=== PATIENT | male | born 1965 | race Caucasian/White ===

== ENCOUNTER 2017-05-29 18:46 | Observation (INO) | payer BC ==
[~2017-05-29] VITALS: Ht 203.2 cm; Wt 89.3 kg
[2017-05-29 18:53] VITALS: BP 141/82; PULSE 63; RESP 16; TEMP 98.7; O2SAT 97
[2017-05-29 20:18] VITALS: BP_SYST 140; BP_SYST 147; BP_DIAS 81; BP_DIAS 85; PULSE 59; PULSE 63; RESP 20; O2SAT 99
[2017-05-29] MEDS ORDERED: ASPI-183 PO (20:37)
[2017-05-29] MEDS ORDERED: AMBI10TA PO (20:37)
[2017-05-29] MEDS ORDERED: ASPIRIN 81 MG CHEW TAB PO ONE (20:45)
[2017-05-29] MEDS ORDERED: SODIUM CHLORIDE 0.9% FLUSH 10 ML FLUSH IVF PRN (20:45)
[2017-05-29 20:49] VITALS: BP 125/84; PULSE 62; RESP 20; O2SAT 97
[2017-05-29 20:53] LABS: AUTOMATED NEUTROPHIL # 2.2 TH/MM3 (1.8-7.7); BASOPHIL % 1.1 % (0.0-2.0); EOSINOPHIL # 0.3 TH/MM3 (0-0.4); EOSINOPHIL % 7.2 % (0.0-4.0); LYMPH % 34.6 % (9.0-44.0); LYMPHOCYTE # 1.5 TH/MM3 (1.0-4.8); MEAN CELL VOLUME 92.8 FL (80.0-100.0); MEAN CORPUSCULAR HEMOGLOBIN 31.7 PG (27.0-34.0); MEAN CORPUSCULAR HGB CONC 34.1 % (32.0-36.0); MEAN PLATELET VOLUME 8.9 FL (7.0-11.0); MONO % 7.5 % (0.0-8.0); MONOCYTE # 0.3 TH/MM3 (0-0.9); NEUT % 49.6 % (16.0-70.0); PLATELET COUNT 142 TH/MM3 (150-450); RED BLOOD COUNT 4.74 MIL/MM3 (4.50-5.90); RED CELL DISTRIBUTION WIDTH 12.6 % (11.6-17.2); WHITE BLOOD COUNT 4.3 TH/MM3 (4.0-11.0)
[2017-05-29 21:00] LABS: CHLORIDE 107 MEQ/L (98-107); SODIUM (NA) 141 MEQ/L (136-145)
[2017-05-29 21:03] LABS: CALCIUM 8.4 MG/DL (8.5-10.1)
[2017-05-29 21:04] LABS: ALBUMIN 3.9 GM/DL (3.4-5.0); BICARBONATE 29.2 MEQ/L (21.0-32.0); BLOOD UREA NITROGEN 15 MG/DL (7-18); GLUCOSE,RANDOM 80 MG/DL (74-106)
[2017-05-29 21:06] LABS: INTERNATIONAL NORMALIZED RATIO 1.1 RATIO; PROTHROMBIN TIME - PATIENT 10.8 SEC (9.8-11.6)
[2017-05-29 21:07] LABS: ALT (GPT) 21 U/L (12-78); AST (GOT) 19 U/L (15-37); CREATININE 0.87 MG/DL (0.60-1.30); GLOMERULAR FILTRATION RATE 93 ML/MIN (>89)
[2017-05-29 21:08] LABS: D-DIMER 0.21 MG/L FEU (0.00-0.50); TOTAL BILIRUBIN ADULT 0.6 MG/DL (0.2-1.0); TOTAL PROTEIN 7.2 GM/DL (6.4-8.2)
[2017-05-29 21:10] LABS: ALKALINE PHOSPHATASE 64 U/L (45-117)
[2017-05-29 21:12] LABS: TROPONIN I LESS THAN 0.02 NG/ML (0.02-0.05)
--- NOTE | 2017-05-29 21:20 | RADRPT ---
EXAM DATE/TIME: 05/29/2017 20:53 [place] COMPARISON: No previous studies available for comparison. INDICATIONS : Chest discomfort; elevated heart rate. MEDICAL HISTORY : CVA. PVC. SURGICAL HISTORY : None. ENCOUNTER: Initial ACUITY: 1 day PAIN SCORE: 0/10 LOCATION: Bilateral chest FINDINGS: A single view of the chest demonstrates the lungs to be symmetrically aerated without evidence of mas s, infiltrate or effusion. The cardiomediastinal contours are unremarkable. Osseous structures are intact. CONCLUSION: No evidence of acute cardiopulmonary disease. Art Rios MD on May 29, 2017 at 21:18 Board Certified Radiologist. This report was verified electronically.
--- NOTE | 2017-05-29 21:36 | PD ---
HPI Chief Complaint: Cardiac Complaint Time Seen by Provider: 20:27 Travel History International Travel<30 days: No Contact w/Intl Traveler<30days: No Traveled to known affect area: No History of Present Illness HPI Patient is a 51-year-old male who comes in complaining of chest pain and palpitations. He says he first noticed some palpitations this morning when he woke up, and they went away. Again while he was at work he started to feel palpitations and started to feel dizzy. He then developed some pain to the center of his chest, which she describes as a pressure. He says currently he is symptom-free, but his symptoms have been coming and going. He takes an aspirin every day. He has no heart problems, but says that he had a stroke in 2003. He denies nausea or vomiting or shortness of breath. He does say that he had a little bit of nausea when the pain came on. He is not having any cold symptoms. Symptoms are mild to moderate. PFSH Past Medical History Hx Anticoagulant Therapy: Yes (asa 325mg ) Heart Rhythm Problems: Yes Cardiovascular Problems: Yes (pvc and palpitations) Cerebrovascular Accident: Yes (cva 2003) Diminished Hearing: No Tetanus Vaccination: < 5 Years Influenza Vaccination: No Social History Alcohol Use: Yes (Occ) Tobacco Use: No Substance Use: No Allergies-Medications (Allergen,Severity, Reaction): Coded Allergies: tetracycline (Verified Allergy, Severe, Anaphylaxis, 05/29/17) Reported Meds & Prescriptions Reported Meds & Active Scripts Active Reported Ambien (Zolpidem Tartrate) 10 Mg Tab 10 Mg PO HS PRN Aspirin 325 Mg Tab 325 Mg PO DAILY Review of Systems Except as stated in HPI: all other systems reviewed are Neg General / Constitutional: No: Fever, Chills Eyes: No: Blurred Vision HENT: No: Headaches, Lightheadedness Cardiovascular: Positive: Chest Pain or Discomfort, Palpitations Respiratory: No: Shortness of Breath Gastrointestinal: No: Nausea, Vomiting Musculoskeletal: No: Myalgias, Edema Skin: No Rash, No Change in Pigmentation Neurologic: Positive: Dizziness, No: Weakness Physical Exam Narrative GENERAL: Awake and alert, in no acute distress. SKIN: Focused skin assessment warm/dry. HEAD: Atraumatic. Normocephalic. EYES: Pupils equal and round. No scleral icterus. Extraocular movements intact. ENT: Mucous membranes pink and moist. NECK: Trachea midline. No JVD. CARDIOVASCULAR: Regular rate and rhythm. No murmur appreciated. RESPIRATORY: No accessory muscle use. Clear to auscultation. Breath sounds equal bilaterally. GASTROINTESTINAL: Abdomen soft, non-tender, nondistended. MUSCULOSKELETAL: No obvious deformities. No clubbing. No cyanosis. No edema. NEUROLOGICAL: Awake and alert. No obvious cranial nerve deficits. Motor grossly within normal limits. Normal speech. PSYCHIATRIC: Appropriate mood and affect; insight and judgment normal. Data Data Last Documented VS Vital Signs Date Time Temp Pulse Resp B/P (MAP) Pulse Ox O2 Delivery O2 Flow Rate FiO2 05/29/17 20:32 63 20 98 05/29/17 20:18 140/85 (103) Room Air 147/81 (103) 05/29/17 18:53 98.7 Orders Orders Electrocardiogram (05/29/17 20:36) Complete Blood Count With Diff (05/29/17 20:36) Comprehensive Metabolic Panel (05/29/17 20:36) D-Dimer (05/29/17 20:36) Prothrombin Time / Inr (Pt) (05/29/17 20:36) Act Partial Throm Time (Ptt) (05/29/17 20:36) Troponin I (05/29/17 20:36) Chest, Single Ap (05/29/17 20:36) Ecg Monitoring (05/29/17 20:36) Bilateral Bp Monitoring (05/29/17 20:36) Iv Access Insert/Monitor (05/29/17 20:36) Oximetry (05/29/17 20:36) Aspirin Chew (Aspirin Chew) (05/29/17 20:45) Sodium Chloride 0.9% Flush (Ns Flush) (05/29/17 20:45) Labs Laboratory Tests Test 05/29/17 20:35 White Blood Count 4.3 TH/MM3 Red Blood Count 4.74 MIL/MM3 Hemoglobin 15.0 GM/DL Hematocrit 44.0 % Mean Corpuscular Volume 92.8 FL Mean Corpuscular Hemoglobin 31.7 PG Mean Corpuscular Hemoglobin Concent 34.1 % Red Cell Distribution Width 12.6 % Platelet Count 142 TH/MM3 Mean Platelet Volume 8.9 FL Neutrophils (%) (Auto) 49.6 % Lymphocytes (%) (Auto) 34.6 % Monocytes (%) (Auto) 7.5 % Eosinophils (%) (Auto) 7.2 % Basophils (%) (Auto) 1.1 % Neutrophils # (Auto) 2.2 TH/MM3 Lymphocytes # (Auto) 1.5 TH/MM3 Monocytes # (Auto) 0.3 TH/MM3 Eosinophils # (Auto) 0.3 TH/MM3 Basophils # (Auto) 0.0 TH/MM3 CBC Comment DIFF FINAL Differential Comment Prothrombin Time 10.8 SEC Prothromb Time International Ratio 1.1 RATIO Activated Partial Thromboplast Time 26.8 SEC D-Dimer Quantitative (PE/DVT) 0.21 MG/L FEU Blood Urea Nitrogen 15 MG/DL Creatinine 0.87 MG/DL Random Glucose 80 MG/DL Total Protein 7.2 GM/DL Albumin 3.9 GM/DL Calcium Level 8.4 MG/DL Alkaline Phosphatase 64 U/L Aspartate Amino Transf (AST/SGOT) 19 U/L Alanine Aminotransferase (ALT/SGPT) 21 U/L Total Bilirubin 0.6 MG/DL Sodium Level 141 MEQ/L Potassium Level 3.7 MEQ/L Chloride Level 107 MEQ/L Carbon Dioxide Level 29.2 MEQ/L Anion Gap 5 MEQ/L Estimat Glomerular Filtration Rate 93 ML/MIN Troponin I LESS THAN 0.02 NG/ML MDM Medical Decision Making Medical Screen Exam Complete: Yes Emergency Medical Condition: Yes Medical Record Reviewed: Yes Interpretation(s) ECG shows sinus bradycardia at a rate of 59, no ST elevation or depression, normal intervals Differential Diagnosis ACS versus an STEMI versus STEMI versus anemia versus dehydration Narrative Course Patient is a 51-year-old male who comes in complaining of palpitations, chest pain and dizziness. Exam shows no acute abnormalities. IV established, labs sent. Troponin and d-dimer are negative. Chest x-ray performed shows no acute abnormalities. Patient took an aspirin at home. Concern is for possible ACS. He will be placed in chest pain center for further management. Diagnosis Primary Impression: Chest pain Qualified Codes: R07.9 - Chest pain, unspecified Additional Impression: Palpitations Admitting Information Admitting Physician Requests: Lesa Cunha MD May 29, 2017 21:36
[2017-05-29] MEDS: SODIUM CHLOR 0.9% 1000 ML INJ 1,000 ML IV SCH (21:40)
[2017-05-29] MEDS ORDERED: ACETAMINOPHEN 500 MG CPLT PO PRN (21:45)
[2017-05-29] MEDS ORDERED: SODIUM CHLORIDE 0.9% FLUSH 10 ML FLUSH IV FLUSH PRN (21:45)
[2017-05-29] MEDS ORDERED: ONDANSETRON HCL 4 MG/2 ML VIAL IV PUSH PRN (21:45)
[2017-05-29] MEDS ORDERED: MORPHINE SULFATE 4 MG/ML INJ IV PUSH PRN (21:45)
[2017-05-29] MEDS ORDERED: ACETAMINOPHEN/HYDROcodone 325 MG/7.5 MG TAB PO PRN (21:45)
[2017-05-29 22:20] VITALS: BP 122/74; PULSE 58; RESP 20; O2SAT 98
[2017-05-29 23:11] VITALS: BP 114/76
[2017-05-29 23:20] VITALS: BP 117/66; PULSE 63; RESP 20; TEMP 96.2; O2SAT 95
[2017-05-30 00:30] LABS: TROPONIN I LESS THAN 0.02 NG/ML (0.02-0.05)
[2017-05-30 02:40] VITALS: O2SAT 97
[2017-05-30 03:01] LABS: TROPONIN I LESS THAN 0.02 NG/ML (0.02-0.05)
[2017-05-30 04:00] VITALS: BP 118/67; PULSE 65; RESP 20; TEMP 97.1; O2SAT 96
[2017-05-30] MEDS: SODIUM CHLOR 0.9% 1000 ML INJ 1,000 ML IV SCH (07:40)
[2017-05-30 08:00] VITALS: BP 133/86; PULSE 67; RESP 18; TEMP 96.8; O2SAT 95
[2017-05-30] MEDS ORDERED: SODIUM CHLORIDE 0.9% FLUSH 10 ML FLUSH IV FLUSH SCH (09:00)
--- NOTE | 2017-05-30 09:00 | HHI.HP ---
[facility]Staff Admission Diagnosis Chest pain, palpitations Diagnoses: (1) Chest pain Diagnosis: Principal (2) Fatigue Diagnosis: Principal Chief Complaint: Chest discomfort, fatigue Travel History International Travel<30 Days: No Contact w/Intl Traveler <30 Da: No Traveled to Known Affected Are: No History of Present Illness This is a 51-year-old male with known history of stroke without any residuals in 2003 who presented to the hospital because of multiple symptoms and complaints it has been going on for the last 3 days. Patient states that 3 days ago he started developing generalized malaise, fatigue where he thought he was coming down with the flu. Then 2 days ago he started noticing that his heart was racing it was going from 70-125 bpm. At that time he has severe fatigue, lightheadedness, dizziness whenever he leans over he felt like his head was going to pop. Then yesterday at approximately 1:30 PM he started noticing some chest discomfort which is located in the midsternal area which was a 2/10 on a pain scale that lasted for approximately 1-2 hours at a time. He had a total of 3 episodes yesterday with associated nausea, fatigue. Denied any vomiting, shortness of breath, diaphoresis, radiation of pain. Patient has been seen by Dr. Wood in the past and underwent cardiac stress test about 3 years ago. He does have an appointment with Dr. Wood in 3 days. Patient denies any recurrent of symptoms while he has been in the hospital. Patient's only risk factor would be age at this time. Review of Systems Constitutional: COMPLAINS OF: Fatigue, Dizziness Cardiovascular: COMPLAINS OF: Chest pain Gastrointestinal: COMPLAINS OF: Nausea Except as stated in HPI: all other systems reviewed are Neg Past Family Social History Past Medical History History of stroke in 2003 without any residuals Past Surgical History Left shoulder repair Left knee repair Reported Medications Reported Meds & Active Scripts Active Reported Ambien (Zolpidem Tartrate) 10 Mg Tab 10 Mg PO HS PRN Aspirin 325 Mg Tab 325 Mg PO DAILY Allergies: Coded Allergies: tetracycline (Verified Allergy, Severe, Anaphylaxis, 3/15/18) Family History Reviewed significant for father alive at 75 and mother alive at 71 all in good health. Social History Patient does drink alcohol occasionally. Denies any tobacco or illicit drug Physical Exam Vital Signs Vital Signs Date Time Temp Pulse Resp B/P (MAP) Pulse Ox O2 Delivery O2 Flow Rate FiO2 05/30/17 04:00 97.1 65 20 118/67 (84) 96 05/30/17 02:40 97 21 05/29/17 23:20 96.2 63 20 117/66 (83) 95 05/29/17 23:11 62 20 114/76 (89) 98 05/29/17 22:20 58 20 122/74 (90) 98 05/29/17 20:32 63 20 98 05/29/17 20:18 63 20 140/85 (103) 99 Room Air 147/81 (103) 05/29/17 20:18 59 20 147/81 (103) 99 Room Air 05/29/17 18:53 98.7 63 16 141/82 (101) 97 Physical Exam GENERAL: Well-developed, well-nourished, in no acute distress. alert and orientated HEENT: Head is normocephalic without any lesions or masses noted. Facial features are symmetric. Eyes: Pupils equal round reactive to light. Extraocular muscles are intact. Conjunctivae were clear. Oropharyngeal: Pharynx without any erythema edema. Tongue is midline without deviation. Buccal mucosa is moist without any masses or lesions NECK: Supple without any masses. Trachea midline no deviation. No JVD, no bruits are appreciated CARDIAC: Regular rhythm, regular rate. S1/S2 are heard. No murmurs gallops or rubs. LUNGS: Clear to auscultation bilaterally. No wheeze, rhonchi or rales. No use of accessory muscles on inspiration or expiration. ABDOMEN: Soft, nontender. Nondistended. Bowel sounds heard in all 4 quadrants. No organomegaly or masses. Negative rebound, negative guarding EXTREMITIES: No edema, pulses are equal bilaterally. No cyanosis or clubbing NEUROLOGY: Mood and affect appear appropriate. Cranial nerves II through XII grossly intact. Muscle strength 5/5 in upper and lower extremities bilaterally. Deep tendon reflexes are 2+ in upper and lower extremities bilaterally. Laboratory Laboratory Tests Test 05/29/17 20:35 05/30/17 00:00 05/30/17 02:25 White Blood Count 4.3 Red Blood Count 4.74 Hemoglobin 15.0 Hematocrit 44.0 Mean Corpuscular Volume 92.8 Mean Corpuscular Hemoglobin 31.7 Mean Corpuscular Hemoglobin Concent 34.1 Red Cell Distribution Width 12.6 Platelet Count 142 Mean Platelet Volume 8.9 Neutrophils (%) (Auto) 49.6 Lymphocytes (%) (Auto) 34.6 Monocytes (%) (Auto) 7.5 Eosinophils (%) (Auto) 7.2 Basophils (%) (Auto) 1.1 Neutrophils # (Auto) 2.2 Lymphocytes # (Auto) 1.5 Monocytes # (Auto) 0.3 Eosinophils # (Auto) 0.3 Basophils # (Auto) 0.0 CBC Comment DIFF FINAL Differential Comment Prothrombin Time 10.8 Prothromb Time International Ratio 1.1 Activated Partial Thromboplast Time 26.8 D-Dimer Quantitative (PE/DVT) 0.21 Blood Urea Nitrogen 15 Creatinine 0.87 Random Glucose 80 Total Protein 7.2 Albumin 3.9 Calcium Level 8.4 Alkaline Phosphatase 64 Aspartate Amino Transf (AST/SGOT) 19 Alanine Aminotransferase (ALT/SGPT) 21 Total Bilirubin 0.6 Sodium Level 141 Potassium Level 3.7 Chloride Level 107 Carbon Dioxide Level 29.2 Anion Gap 5 Estimat Glomerular Filtration Rate 93 Troponin I LESS THAN 0.02 LESS THAN 0.02 LESS THAN 0.02 Total Creatine Kinase 84 72 Result Diagram: 05/29/17203405/29/172034 Imaging Last Impressions Chest X-Ray 05/29/172035 Signed Impressions: Service Date/Time: May 20:53 - CONCLUSION: No evidence of acute cardiopulmonary disease. MD Andrew Mcdonnelli VTE Risk Assessment Caprini VTE Risk Assessment: No/Low Risk (score <= 1) Caprini Risk Assessment Model Point Value = 1 Point Value = 2 Point Value = 3 Point Value = 5 Age 41-60 Minor surgery BMI > 25 kg/m2 Swollen legs Varicose veins or History of unexplained or recurrent spontaneous Oral contraceptives or hormone replacement Sepsis (< 1 month) Serious lung disease, including pneumonia (< 1 month) Abnormal pulmonary function Acute myocardial infarction Congestive heart failure (< 1 month) History of inflammatory bowel disease Medical patient at bed rest Age 61-74 Arthroscopic surgery Major open surgery (> 45 min) Laparoscopic surgery (> 45 min) Malignancy Confined to bed (> 72 hours) Immobilizing plaster cast Central venous access Age >= 75 History of VTE Family history of VTE Factor V Leiden Prothrombin [id number] Lupus anticoagulant Anticardiolipin antibodies Elevated serum homocysteine Heparin-induced thrombocytopenia Other congenital or acquired thrombophilia Stroke (< 1 month) Elective arthroplasty Hip, pelvis, or leg fracture Acute spinal cord injury (< 1 month) Prophylaxis Regimen Total Risk Factor Score Risk Level Prophylaxis Regimen 0-1 Low Early ambulation 2 Moderate Order ONE of the following: *Sequential Compression Device (SCD) *Heparin 5000 units SQ BID 3-4 Higher Order ONE of the following medications: *Heparin 5000 units SQ TID *Enoxaparin/Lovenox 40 mg SQ daily (WT < 150 kg, CrCl > 30 mL/min) *Enoxaparin/Lovenox 30 mg SQ daily (WT < 150 kg, CrCl > 10-29 mL/min) *Enoxaparin/Lovenox 30 mg SQ BID (WT < 150 kg, CrCl > 30 mL/min) AND/OR *Sequential Compression Device (SCD) 5 or more Highest Order ONE of the following medications: *Heparin 5000 units SQ TID (Preferred with Epidurals) *Enoxaparin/Lovenox 40 mg SQ daily (WT < 150 kg, CrCl > 30 mL/min) *Enoxaparin/Lovenox 30 mg SQ daily (WT < 150 kg, CrCl > 10-29 mL/min) *Enoxaparin/Lovenox 30 mg SQ BID (WT < 150 kg, CrCl > 30 mL/min) AND *Sequential Compression Device (SCD) Assessment and Plan Assessment and Plan Chest discomfort Patient with minimal risk factors to include age, patient did have precipitating symptoms to include general malaise, tachycardia, fatigue, lightheadedness, dizziness Patient been ruled out for acute coronary event with serial cardiac enzymes are negative Serial EKG shows sinus bradycardia without any changes with possible early repolarization Telemetry was reviewed which did not indicate any arrhythmia, PVCs, PACs. Discussed the case with Dr. Reagan, who is covering for Dr. Wood. He indicates that patient has been ruled out with serial enzymes and EKGs. [facility] recommending patient can be discharged and follow-up in their office for his regular scheduled appointment on Friday Continue aspirin, [place], morphine as needed for pain History of CVA Continue aspirin DVT prevention Low risk, early ambulation Discharge disposition Discharge home in stable condition Activity: Ad william. Diet: Healthy heart diet Medication per medication reconciliation Follow-up with primary medical doctor in 1 week Problem Qualifiers (1) Chest pain: Qualified Codes: R07.9 - Chest pain, unspecified Oneal Bernard May 30, 2017 09:00
--- NOTE | 2017-05-30 09:44 | HHI.DCPOC ---
Discharge Care Plan Diagnosis: (1) Chest pain (2) Fatigue Goals to Promote Your Health * To prevent worsening of your condition and complications * To maintain your health at the optimal level Directions to Meet Your Goals Take your medications as prescribed Follow your dietary instruction Follow activity as directed Keep your appointments as scheduled Take your immunizations and boosters as scheduled If your symptoms worsen call your PCP, if no PCP go to Urgent Care Center or Emergency Room Smoking is Dangerous to Your Health. Avoid second hand smoke Call the 24-hour hour crisis hotline for domestic abuse at Oneal Bernard May 30, 2017 09:44
--- NOTE | 2017-05-30 10:57 | EKG ---
Date Performed: 05/29/2017 Time Performed: 19:20:45 PTAGE: 51 years EKG: SINUS BRADYCARDIA WITH SINUS ARRHYTHMIA BORDERLINE ECG NO PREVIOUS TRACING DOCTOR: Shlomo Salamanca Interpretating Date/Time 05/30/2017 10:57:34
--- NOTE | 2017-05-30 11:14 | EKG ---
Date Performed: 05/30/2017 Time Performed: 02:35:21 PTAGE: 51 years EKG: SINUS BRADYCARDIA ST ELEVATION, PROBABLY EARLY REPOLARIZATION MINIMAL ST DEPRESSION BORDERL INE ECG PREVIOUS TRACING : 05/29/2017 19.20 Since the previous tracing, no significant change noted DOCTOR: Shlomo Salamanca Interpretating Date/Time 05/30/2017 11:10:33
[2017-05-30 16:00] VITALS: BP 132/88; PULSE 95; RESP 18; TEMP 97.2; O2SAT 95
== END 2017-05-30 19:00 | disposition home or self-care (01) ==
LOC: PHED 18:46 → PHEDA 21:41 → PH3A 23:20 → UNDODISOB 05-30 11:51
PROVIDERS: ADMIT Hospitalist; ATTEND Hospitalist
DX: R07.89 Other chest pain (principal); R53.81 Other malaise; R53.83 Other fatigue; R00.2 Palpitations; R11.0 Nausea; R00.1 Bradycardia, unspecified; Z86.73 Personal history of transient ischemic attack (TIA), and cerebral infarction without residual deficits; Z79.82 Long term (current) use of aspirin
CPT/HCPCS: 71045; 80053; 82550; 84484; 85025; 85379; 85610; 85730; 93005; 96360; 99285; G0378; J7030